=== PATIENT | female | born 1970 | race American Indian/Alaskan Native ===

== ENCOUNTER 2016-07-15 22:10 | Emergency (ER) | payer MEDICARE ==
[2016-07-15 22:23] VITALS: BP 127/87
[2016-07-16] MEDS: NORCO 7.5/325 PO ONE (03:01)
--- NOTE | 2016-07-16 03:01 | XRay Report ---
FINAL REPORT PROCEDURE: XR FOOT 3 LT TECHNIQUE: Left foot radiographs, AP, lateral, and oblique views. CPT 17946 HISTORY: Lt big toe pain COMPARISON: No prior studies are available for comparison. FINDINGS: Fracture (s) and/or Dislocation(s): None . Alignment: Normal . Joint space(s): Normal . Soft tissues: Normal . Bone mineralization: Normal . Foreign bodies: None . Calcaneal spurring: None . IMPRESSION: Normal Examination
--- NOTE | 2016-07-16 03:23 | Emergency Department Report ---
ED Lower Extremity HPI - General Chief Complaint: Extremity Injury, Lower Stated Complaint: TOE PAIN Time Seen by Provider: 07/16/16 01:58 Source: patient Mode of arrival: Ambulatory Limitations: No Limitations - History of Present Illness Initial Comments: This is a 45-year-old female that presents with left hallux toe pain. Patient stated that somebody stepped on her toe 2 days ago. Patient denies any numbness or tingling sensation. Patient stated has a normal gait with pain to the hallux. Patient denies any deformities. The patient does not seem toxic or ill in appearance. No signs of distress noted. is currently present with the patient. Patient denies chest pain or shortness of breath. Denies nausea or vomiting. Denies any trauma. MD Complaint: other (left hallux) -: Gradual, days(s) (2) Injury: Toes: Left (hallux) Type of Injury: other (stepped on) Place: home Severity: severe Severity scale (0 -10): 10 Improves With: nothing Worsens With: movement, palpation Associated Symptoms: able to partially bear weight, ambulatory. denies: snap/ pop sensation, swelling, numbness, tingling, unable to bear weight - Related Data Previous Rx's Medication Instructions Recorded Last Taken Type Pregabalin [Lyrica] 25 mg PO QDAY #30 capsule 06/21/14 10/02/14 Rx Topiramate [Topamax TAB] 50 mg PO BID PRN #60 tablet 06/21/14 10/02/14 Rx Ondansetron [Zofran TAB] 8 mg PO Q8HR PRN #16 tablet 10/04/14 Unknown Rx Pantoprazole [Protonix TAB] 40 mg PO QDAY #14 tablet 10/04/14 Unknown Rx Ciprofloxacin HCl [Ciprofloxacin 500 mg PO BID #14 tablet 09/15/15 Unknown Rx TAB] traMADol [Ultram] 50 mg PO Q4HR PRN #20 tablet 09/15/15 Unknown Rx Cephalexin [Keflex] 500 mg PO QID #20 capsule 12/02/15 Unknown Rx HYDROcodone/APAP 7.5-325 [Trion 1 each PO Q8HR PRN #10 tablet 12/02/15 Unknown Rx 7.5-325 mg TAB] Ondansetron [Zofran TAB] 4 mg PO Q8HR PRN #14 tablet 12/02/15 Unknown Rx Permethrin 5% [Acticin 5% CREAM] 1 applicatio TP ONCE #1 tube 12/02/15 Unknown Rx Acetaminophen [Acetaminophen 650 mg AZ Q6HR PRN 3 Days 07/16/16 Unknown Rx SUPPOS] Allergies Allergy/AdvReac Type Severity Reaction Status Date / Time latex Allergy Rash Verified 09/23/13 22:16 povidone-iodine Allergy Hives Verified 09/23/13 22:16 [From Betadine] plastic tape Allergy Rash Uncoded 01/01/14 21:08 ED Review of Systems ROS: Stated complaint: TOE PAIN Other details as noted in HPI Constitutional: denies: chills, fever Eyes: denies: eye pain, eye discharge, vision change ENT: denies: ear pain, throat pain Respiratory: denies: cough, shortness of breath, wheezing Cardiovascular: denies: chest pain, palpitations Endocrine: no symptoms reported Gastrointestinal: denies: abdominal pain, nausea, diarrhea Genitourinary: denies: urgency, dysuria, discharge Musculoskeletal: denies: back pain, joint swelling, arthralgia Skin: denies: rash, lesions Neurological: denies: headache, weakness, paresthesias Psychiatric: denies: anxiety, depression Hematological/Lymphatic: denies: easy bleeding, easy bruising ED Past Medical Hx - Past Medical History Previous Medical History?: Yes Hx Headaches / Migraines: Yes Additional medical history: fibromyalgia, heart murmur as a child, fibroids. anemia - Surgical History Past Surgical History?: Yes Additional Surgical History: tubal ligation 1995, gastrecotmy 10/23 - Social History Smoking Status: Never Smoker Substance Use Type: None - Medications Home Medications: Home Medications Medication Instructions Recorded Confirmed Last Taken Type Pregabalin [Lyrica] 25 mg PO QDAY #30 capsule 06/21/14 10/04/14 10/02/14 Rx Topiramate [Topamax TAB] 50 mg PO BID PRN #60 tablet 06/21/14 10/04/14 10/02/14 Rx Ondansetron [Zofran TAB] 8 mg PO Q8HR PRN #16 tablet 10/04/14 Unknown Rx Pantoprazole [Protonix TAB] 40 mg PO QDAY #14 tablet 10/04/14 Unknown Rx Ciprofloxacin HCl [Ciprofloxacin 500 mg PO BID #14 tablet 09/15/15 Unknown Rx TAB] traMADol [Ultram] 50 mg PO Q4HR PRN #20 tablet 09/15/15 Unknown Rx Cephalexin [Keflex] 500 mg PO QID #20 capsule 12/02/15 Unknown Rx HYDROcodone/APAP 7.5-325 [Trion 1 each PO Q8HR PRN #10 tablet 12/02/15 Unknown Rx 7.5-325 mg TAB] Ondansetron [Zofran TAB] 4 mg PO Q8HR PRN #14 tablet 12/02/15 Unknown Rx Permethrin 5% [Acticin 5% CREAM] 1 applicatio TP ONCE #1 tube 12/02/15 Unknown Rx Acetaminophen [Acetaminophen 650 mg AZ Q6HR PRN 3 Days 07/16/16 Unknown Rx SUPPOS] ED Physical Exam - General Limitations: No Limitations General appearance: alert, in no apparent distress - Head Head exam: Present: atraumatic, normocephalic - Eye Eye exam: Present: normal appearance - ENT ENT exam: Present: mucous membranes moist - Neck Neck exam: Present: normal inspection - Respiratory Respiratory exam: Present: normal lung sounds bilaterally. Absent: respiratory distress - Cardiovascular Cardiovascular Exam: Present: regular rate, normal rhythm. Absent: systolic murmur, diastolic murmur, rubs, gallop - GI/Abdominal GI/Abdominal exam: Present: soft, normal bowel sounds - Extremities Exam Extremities exam: Present: normal inspection - Expanded Lower Extremity Exam Left Hip exam: Present: normal inspection, full ROM Upper Leg exam: Present: normal inspection, full ROM Knee exam: Present: normal inspection, full ROM Lower Leg exam: Present: normal inspection, full ROM Ankle exam: Present: normal inspection, full ROM Foot/Toe exam: Present: normal inspection, full ROM, tenderness (left hallux). Absent: swelling, abrasion, laceration, ecchymosis, deformity, crepidus, dislocation, erythema, amputation, puncture wound, foreign body, calcaneal tenderness, tenderness at base of 5th metatarsal, nail avulsion, subungual hematoma Neuro vascular tendon exam: Present: no vascular compromise Gait: Positive: observed and normal 1 - tenderness - Back Exam Back exam: Present: normal inspection - Neurological Exam Neurological exam: Present: alert, oriented X3, CN II-XII intact, normal gait - Psychiatric Psychiatric exam: Present: normal affect, normal mood - Skin Skin exam: Present: warm, dry, intact, normal color. Absent: rash ED Course Vital Signs 07/15/16 22:17 Temperature 98.3 F Pulse Rate 88 Respiratory 16 Rate Blood Pressure 127/87 Blood Pressure 127/87 [Right] O2 Sat by Pulse 200 H Oximetry - Reevaluation(s) Reevaluation #1: 07/16/16 03:29 Patient stated pain has subsided to a 4 out of 10 after receiving Trion. ED Lower Extremity MDM - Medical Decision Making ED course: 45-year-old female that presents with left hallux pain status post stepped on 1- x-ray of foot was obtained in ED. Results; normal examination. 2- patient received Trion 7.5 mg in ED. 3- the patient is aware of x-ray results. I instructed the patient to follow up with orthopedic doctor and/or primary care doctor in 3-5 days for possibility of repeat x-ray if symptoms continue. 4- at this time the patient does not seem toxic or ill in appearance. No signs of distress noted. 5- patient refused ibuprofen 600 mg at the time of d/c due to hx of ulcers and gastrectomy. Patient received acetaminophen 650 mg at time of discharge. 6- patient received discharge plan and treatment. No further questions noted by patient. Critical care attestation.: If time is entered above; I have spent that time in minutes in the direct care of this critically ill patient, excluding procedure time. ED Disposition Clinical Impression: Great toe pain Qualifiers: Laterality: left Qualified Code(s): M79.675 - Pain in left toe(s) Disposition: DISCHARGED TO HOME OR SELFCARE Is pt being admited?: No Does the pt Need Aspirin: No Condition: Stable Instructions: Ibuprofen (By mouth) Additional Instructions: Follow-up with your primary-care doctor/orthopedic doctor in 3-5 days. Take acetaminophen as prescribed as needed. If symptoms worsen report back to emergency room. Prescriptions: Acetaminophen [Acetaminophen SUPPOS] 650 mg [place] Q6HR PRN 3 Days PRN Reason: Fever Referrals: PRIMARY CARE, [Primary Care Provider] - 3-5 Days CLARISSA CÁRDENAS MD [Staff Physician] - 3-5 Days [facility] [Outside] - 3-5 Days [facility] [Outside] - 3-5 Days Forms: Work/School Release Form(ED)
== END 2016-07-16 03:44 | disposition home or self-care (01) ==
LOC: ED 22:10
DX: M79.675 Pain in left toe(s) (principal); G43.909 Migraine, unspecified, not intractable, without status migrainosus; D64.9 Anemia, unspecified; Z91.048 Other nonmedicinal substance allergy status; Z91.040 Latex allergy status; Z88.8 Allergy status to other drugs, medicaments and biological substances